=== PATIENT | female | born 1990 | race Caucasian/White ===

== ENCOUNTER → 2016-12-25 | Outpatient (CLI) | payer OTHER ==
--- NOTE | 2016-12-25 14:34 | US ---
EXAMINATION TYPE: US pelvis complete transvag DATE OF EXAM: 12/25/2016 COMPARISON: NONE CLINICAL HISTORY: N92.0 Menorrhagia w/regular cycle. Irregular menses with heavy bleeding. Cramping, painful intercourse IUD placement 3 years ago TECHNIQUE: Transvaginal (TV) and Transabdominal (TA) Date of LMP: 12/14/16 EXAM MEASUREMENTS: Uterus: 8.2 x 4.0 x 5.0 cm Endometrial Stripe: 0.6 cm Right Ovary: 2.4 x 1.4 x 1.5 cm Left Ovary: 2.9 x 1.4 x 1.4 cm 1. Uterus: Anteverted Nabothian cyst 2. Endometrium: IUD visualized fundus/body 3. Right Ovary: follicles noted 4. Left Ovary: follicles noted 5. Bilateral Adnexa: wnl 6. Posterior cul-de-sac: wnl Transabdominal and transvaginal pelvic ultrasound shows IUD satisfactory in position in the central e ndometrium. IMPRESSION: Unremarkable study.
== END | disposition home or self-care (01) ==
LOC: RADUSWWP 12:42
PROVIDERS: ATTEND Family Medicine
DX: N92.0 Excessive and frequent menstruation with regular cycle (principal)
CPT/HCPCS: 76830; 76856

== ENCOUNTER → 2017-12-01 | Outpatient (CLI) | payer OTHER ==
[2017-12-01 11:36] LABS: HGB 13.7 gm/dL (11.4-16.0); MCH 31.9 pg (25.0-35.0); MCHC 34.3 g/dL (31.0-37.0); MCV 92.9 fL (80.0-100.0); Mean Platelet Volume 6.5; Platelet Count 282 k/uL (150-450); RBC 4.31 m/uL (3.80-5.40); RDW 12.7 % (11.5-15.5); WBC 9.3 k/uL (3.8-10.6)
[2017-12-01 11:45] LABS: Glucose 80 mg/dL (74-99)
--- NOTE | 2017-12-01 13:25 | US ---
EXAMINATION TYPE: Transabdominal DATE OF EXAM: 07/14/17 COMPARISON: NONE CLINICAL HISTORY: Z36 Confirm Dates. Dates, EXAM PERFORMED: Transabdominal (TA) EXAM MEASUREMENTS: GESTATIONAL AGE / DATING Dates by LMP: (10 weeks/2 days) EDC: 06/27/2018 Dates by Current Scan for: (9 weeks/6 days) EDC: 06/30/2018 MATERNAL ANATOMY Uterus: 12.7 x 6.8 x 5.4 cm Right Ovary: 3.9 x 1.9 x 1.7 cm Left Ovary: 3.4 x 1.5 x 0.8 cm Post CDS / Adnexa: No free fluid Presence of free fluid: no Presence of corpus luteal cyst: right hypoechoic ovarian lesion - 1.5 x 1.4 x 0.9 cm Presence of subchorionic bleed: right hypoechoic area seen adjacent to GS = 1.2 x 1.1 x 1.3 cm GESTATION / SURVEY CRL: 3.0 cm (9 weeks/6 days) MSD: Seen, not measured Yolk Sac (normal less than 6mm): 2.9 mm Heart Rate: 167 bpm Rhythm: Normal IUP: Viable IUP Date of LMP: 09/20/2017, Beta HcG (if available): Not available at this time Single live IUP measuring 9 weeks 6 days IMPRESSION: Single viable intrauterine corresponding to ultrasound age 9 weeks 6 days with estimated da te of delivery 06/30/2017 by today's exam. Small subchorionic hemorrhage suspected.
[2017-12-01 17:30] LABS: HIV 1 AB Non-Reactive (Non-Reactive); HIV AB P24 Non-Reactive (Non-Reactive); HIV P24 AG Non-Reactive (Non-Reactive)
== END | disposition home or self-care (01) ==
LOC: RADUSWWP 10:27
PROVIDERS: ATTEND Obstetrics & Gynecology
DX: Z36.9 Encounter for antenatal screening, unspecified (principal); Z3A.09 9 weeks gestation of pregnancy
CPT/HCPCS: 76801; 82565; 82947; 85027; 86762; 86780; 86850; 86900; 86901; 87340; 87390

== ENCOUNTER 2018-06-24 06:03 | Inpatient (IN) | payer OTHER ==
[2018-06-24] MEDS ORDERED: METHYLERGONOVINE 0.2 MG/ML 1 ML AMP IM PRN (06:20)
[2018-06-24] MEDS ORDERED: LIDOCAINE 0.5% (PF) 5 MG/ML (50 ML SDV) SQ PRN (06:20)
[2018-06-24] MEDS ORDERED: TERBUTALINE 1 MG/ML VIAL SQ PRN (06:20)
[2018-06-24] MEDS ORDERED: CARBOPROST TROMETHAMINE 250 MCG/ML 1 ML AMP IM PRN (06:20)
[2018-06-24] MEDS ORDERED: OXYTOCIN 10 UNIT/ML 1 ML VIAL IM PRN (06:20)
[2018-06-24] MEDS ORDERED: OXYTOCIN 30 UNITS/500 ML NS 30 UNIT in SALINE 1 500ML.BAG IV SCH (06:30)
[2018-06-24 06:37] LABS: Basophils % (A) 0 %; Eosinophils # (A) 0.1 k/uL (0-0.7); Eosinophils % (A) 1 %; HCT 33.5 % (34.0-46.0); HGB 11.3 gm/dL (11.4-16.0); Lymphocytes # (A) 2.1 k/uL (1.0-4.8); Lymphocytes % (A) 25 %; MCH 30.5 pg (25.0-35.0); MCHC 33.9 g/dL (31.0-37.0); MCV 89.9 fL (80.0-100.0); Mean Platelet Volume 6.5; Monocytes # (A) 0.6 k/uL (0-1.0); Monocytes % (A) 7 %; Neutrophils # (A) 5.6 k/uL (1.3-7.7); Neutrophils % (A) 65 %; Platelet Count 288 k/uL (150-450); RBC 3.72 m/uL (3.80-5.40); RDW 13.4 % (11.5-15.5); WBC 8.6 k/uL (3.8-10.6)
[2018-06-24] MEDS: LACTATED RINGERS 1,000 ML IV SCH ×2 (06:41→10:09)
[2018-06-24 07:42] VITALS: RESP 16; BMI 65.0
[2018-06-24] MEDS ORDERED: SODIUM CHLORIDE 0.9% 100 ML BAG ONE (09:54)
[2018-06-24] MEDS ORDERED: ROPIVACAINE 5MG/ML 20ML VIAL ONE (09:54)
[2018-06-24] MEDS ORDERED: fentaNYL (PF) 50 MCG/ML 5 ML AMP ONE (09:54)
[2018-06-24] MEDS: OXYTOCIN 20 UNITS/1000 ML NS 1,000 ML IV SCH ×2 (13:32→14:37)
[2018-06-24] MEDS ORDERED: diphenhydrAMINE 25 MG CAP PO PRN (13:34)
[2018-06-24] MEDS ORDERED: HYDROcodone/APAP 7.5-325MG 1 EACH TAB PO PRN (13:34)
[2018-06-24] MEDS ORDERED: WITCH HAZEL 1 EACH MED..PAD TOPICAL PRN (13:34)
[2018-06-24] MEDS ORDERED: BENZOCAINE/MENTHOL SPRAY 1 GM/SPRAY AEROSOL TOPICAL PRN (13:34)
[2018-06-24] MEDS ORDERED: SIMETHICONE 80 MG CHEWABLE PO PRN (13:34)
[2018-06-24] MEDS ORDERED: diphenhydrAMINE 50 MG CAP PO PRN (13:34)
[2018-06-24] MEDS ORDERED: LANOLIN CREAM 5 GM TUBE TOPICAL PRN (13:34)
[2018-06-24] MEDS ORDERED: HYDROCORTISONE 2.5% RECTAL CREAM 30 GM TUBE RECTAL PRN (13:34)
[2018-06-24] MEDS ORDERED: diphenhydrAMINE 50 MG/ML 1 ML VIAL IVP PRN ×2 (13:34)
[2018-06-24] MEDS ORDERED: ACETAMINOPHEN TAB 325 MG TAB PO PRN (13:34)
[2018-06-24] MEDS ORDERED: ZOLPIDEM 5 MG TAB PO PRN (13:34)
[2018-06-24] MEDS: IBUPROFEN 600 MG TAB PO PRN ×2 (17:40→23:38)
[2018-06-25] MEDS: SENNOSIDES-DOCUSATE SODIUM 1 EACH TAB PO SCH ×2 (00:23→08:36)
--- NOTE | 2018-06-25 08:32 | P.HPOB ---
History of Present Illness H&P Date: 06/24/18 Chief Complaint: Induction of Labor 27 year old presents for induction of labor. Her cervix is 3/70/-2. She is not mikayla. heart tones 130-135 with moderate variability and reactive. Review of Systems All systems: negative Constitutional: Denies chills, Denies fever Eyes: denies blurred vision, denies pain Ears, nose, mouth and throat: Denies headache, Denies sore throat Cardiovascular: Denies chest pain, Denies shortness of breath Respiratory: Denies cough Gastrointestinal: Denies abdominal pain, Denies diarrhea, Denies nausea, Denies vomiting Genitourinary: Denies dysuria, Denies hematuria Musculoskeletal: Denies myalgias Integumentary: Denies pruritus, Denies rash Neurological: Denies numbness, Denies weakness Psychiatric: Denies anxiety, Denies depression Endocrine: Denies fatigue, Denies weight change Past Medical History Past Medical History: No Reported History History of Any Multi-Drug Resistant Organisms: None Reported Additional Past Surgical History / Comment(s): arm surgery for cellulitis Past Anesthesia/Blood Transfusion Reactions: No Reported Reaction Past Psychological History: No Psychological Hx Reported Smoking Status: Current every day smoker Past Alcohol Use History: None Reported Past Drug Use History: None Reported - Past Family History Father History Unknown: Yes Medications and Allergies Home Medications Medication Instructions Recorded Confirmed Type Ibuprofen [Motrin] 600 mg PO Q6HR PRN #30 tab 06/25/18 Rx Allergies Allergy/AdvReac Type Severity Reaction Status Date / Time No Known Allergies Allergy Verified 06/24/18 06:18 Exam Osteopathic Statement: *. No significant issues noted on an osteopathic structural exam other than those noted in the History and Physical/Consult. Vital Signs Temp Pulse Resp BP Pulse Ox 06/25/18 00:00 98.1 F 59 L 16 98/53 06/24/18 20:00 99 F 99 16 102/59 97 06/24/18 16:00 98.9 F 81 16 97/56 06/24/18 15:33 82 16 113/64 06/24/18 15:03 88 16 103/64 06/24/18 14:33 71 16 98/63 06/24/18 14:18 82 16 116/68 06/24/18 14:03 91 16 114/66 06/24/18 13:48 90 16 116/68 06/24/18 13:33 87 16 104/72 Intake and Output 06/24/18 06/25/18 06/25/18 22:59 06:59 14:59 Intake Total 1000 Balance 1000 Intake: IV 1000 Oxytocin 20 Units/1000 ml 1000 Ns 1,000 ml @ Per Protocol IV .Q0M NARDA Rx#: [id number] Other: # Voids 1 2 HEart: RRR Lungs: CTAB Abdomen: soft, nontender Extremeties: neg juan diego's Results Result Diagrams: 06/24/18 06:20 Assessment and Plan (1) Normal labor Current Visit: Yes Status: Acute Code(s): O80 - ENCOUNTER FOR FULL-TERM UNCOMPLICATED DELIVERY; Z37.9 - OUTCOME OF DELIVERY, UNSPECIFIED SNOMED Code(s): 89100725 Plan: 1. induction of labor with amniotomy and pitocin 2. anticipate normal vaginal delivery
[2018-06-25] MEDS: IBUPROFEN 600 MG TAB PO PRN (08:36)
--- NOTE | 2018-06-25 08:36 | P.PROBDLV ---
Vaginal Delivery Note - . Vaginal Delivery Note: 27 year old presents at 39 weeks 4 days for induction of labor. Her cervix is 3/70/-2 and she was not mikayla. heart tones 130-135 with moderate variability and reactive. Pitocin was started and amniotomy performed at 750AM, clear fluid noted. She did get an epidural and was completely dilated by 1320. She pushed and delivered a viable female over intact perineum under epidural anesthesia. Head delivered OA, Anterior shoulder delivered with gentle downward guidance, followed by posterior shoulder and rest of body. Nose and mouth bulb suctioned, cord clamped and cut, placed on mother's abdomen. Apgars 9,9, weight 7#9oz. Placenta delivered spontaneously, intact, with 3 vessel cord at 1332. Vagina, cervix and perineum inspected. No lacerations noted. EBL 200ml.
--- NOTE | 2018-06-25 08:37 | P.DS ---
Providers Date of admission: 06/24/18 06:03 Expected date of discharge: 06/25/18 Attending physician: Kailey Wong Primary care physician: Stated None - Discharge Diagnosis(es) (1) Normal labor Current Visit: Yes Status: Resolved (2) Normal vaginal delivery Current Visit: Yes Status: Acute Hospital Course: Pt presented for induction of labor. She underwent a normal vaginal delivery without complication. She will be discharged home PPD #1 in stable condition to follow up with me in 6 weeks. Plan - Discharge Summary New Discharge Prescriptions: New Ibuprofen [Motrin] 600 mg PO Q6HR PRN #30 tab PRN Reason: Mild Pain Or Fever >= 100.5 Discharge Medication List Ibuprofen [Motrin] 600 mg PO Q6HR PRN #30 tab 06/25/18 [Rx] Follow up Appointment(s)/Referral(s): Kailey Wong DO [Doctor of Osteopathic Medicine] - 6 Weeks Discharge Disposition: HOME SELF-CARE
[2018-06-25 09:20] VITALS: BP 106/71; PULSE 74; TEMP 97.9
== END 2018-06-25 14:20 | disposition home or self-care (01) | DRG 807 ==
LOC: 4FBP 06:03
PROVIDERS: ADMIT Obstetrics & Gynecology; ATTEND Obstetrics & Gynecology
PROC: 10E0XZZ Delivery of Products of Conception, External Approach (ICD-10-PCS; principal; 2018-06-24)
PROC: 10907ZC Drainage of Amniotic Fluid, Therapeutic from Products of Conception, Via Natural or Artificial Opening (ICD-10-PCS; 2018-06-24)
PROC: 3E033VJ Introduction of Other Hormone into Peripheral Vein, Percutaneous Approach (ICD-10-PCS; 2018-06-24)
PROC: 3E0S3BZ Introduction of Anesthetic Agent into Epidural Space, Percutaneous Approach (ICD-10-PCS; 2018-06-24)
DX: O99.334 Smoking (tobacco) complicating childbirth (principal); Z37.0 Single live birth; O99.62 Diseases of the digestive system complicating childbirth; K21.9 Gastro-esophageal reflux disease without esophagitis; F17.200 Nicotine dependence, unspecified, uncomplicated; Z3A.39 39 weeks gestation of pregnancy
CPT/HCPCS: 85025; 86850; 86900; 86901

== ENCOUNTER → 2019-04-19 | Outpatient (CLI) | payer OTHER ==
--- NOTE | 2019-04-19 13:32 | US ---
EXAMINATION TYPE: Transabdominal DATE OF EXAM: 04/19/2019 12:40 PM COMPARISON: NONE CLINICAL HISTORY: Z36 Confirm dates. Confirm Dates, pt has no other complaints at this time EXAM PERFORMED: Transabdominal (TA) EXAM MEASUREMENTS: GESTATIONAL AGE / DATING Physician Established: (10 weeks/6 days) EDC: 11/09/2019 Dates by LMP: Unknown Dates by First Scan: No prior Dates by Current Scan for: (9 weeks/5 days) EDC: 11/17/2019 MATERNAL ANATOMY Uterus: 13.3 x 5.7 x 8.2 cm Right Ovary: 2.1 x 1.5 x 2.2 cm Left Ovary: 4.0 x 2.0 x 2.0 cm Post CDS / Adnexa: wnl Presence of free fluid: No Presence of corpus luteal cyst: Left Ovary= 2.1 x 2.0 x 1.9 cm GESTATION / SURVEY CRL: 2.9 cm (9 weeks/5 days) MSD: wnl Yolk Sac (normal less than 6mm): 4mm Heart Rate: 171 bpm Rhythm: Normal IUP: Live IUP Single, live IUP/ No abnormality visualized at this time IMPRESSION: Single live intrauterine with a calculated sonographic age of 9 weeks and 5 day s and estimated date of delivery of 11/17/2019, overall concordant with menstrual age.
== END | disposition home or self-care (01) ==
LOC: RADUSWWP 12:19
PROVIDERS: ATTEND Obstetrics & Gynecology
DX: Z36.89 Encounter for other specified antenatal screening (principal); Z3A.09 9 weeks gestation of pregnancy
CPT/HCPCS: 76801

== ENCOUNTER 2019-11-07 17:18 | Outpatient (CLI) | payer OTHER ==
[2019-11-07 18:06] VITALS: BP 113/60; PULSE 74; RESP 16; TEMP 97.2
--- NOTE | 2019-11-08 17:27 | P.MSEPDOC ---
Presenting Problems - Arrival Data Date of Arrival on Unit: 11/07/19 Time of Arrival on Unit: 17:30 Mode of Transport: Ambulatory - Complaint OB-Reason for Admission/Chief Complaint: Rule Out SROM Comment: leaking clear fluid at 1600 Medical History - Information : 3 Para: 2 Term: 2 : 0 Abortions: Spontaneous or Elective: 0 Number of Living Children: 2 - Gestational Age Gestational Age by ALESSANDRO (wks/days): 38 Weeks and 4 Days - History Comment: no problems with preg. currently on vag yeast medications Review of Systems - Review of Systems Constitutional: No problems Breast: No problems ENT: No problems Cardiovascular: No problems Respiratory: No problems Gastrointestinal: No problems Genitourinary: No problems Musculoskeletal: No problems Neurological: No problems Skin: No problems Vital Signs - Temperature Temperature: 97.2 F Temperature Source: Temporal Artery Scan - Pulse Right Radial Pulse Rate: 74 Pulse Assessment Method: Automatic Cuff - Respirations Respiratory Rate: 16 Oxygen Delivery Method: Room Air O2 Sat by Pulse Oximetry: 100 - Blood Pressure Right Arm Blood Pressure: 113/60 Blood Pressure Mean: 77 Blood Pressure Source: Automatic Cuff Medical Screen Scoring (Pre) - Cervical Exam Dilation: 1-3 cm = 1 Effacement: More than 50% = 2 Membranes: Intact - Uterine Contractions Frequency: N/A Duration: N/A Intensity: N/A - Maternal Vital Signs Maternal Temperature: N/A Maternal Blood Pressure: N/A Signs of Preeclampsia: N/A Maternal Respirations: N/A - Maternal Trauma Maternal Trauma: N/A - Assessment - Baby A Baseline FHR: 130 Heart Rate - NICHD Category: Category I (Normal) = 0 NST: Reactive Position: N/A Station: N/A - Total Score - Baby A Total Score - Baby A: 3 - Total Score - Baby B Total Score - Baby B: 3 - Total Score - Baby C Total Score - Baby C: 3 - Level of Risk - Baby A Level of Risk - Baby A: Low (0-5) - Level of Risk - Baby B Level of Risk - Baby B: Low (0-5) - Level of Risk - Baby C Level of Risk - Baby C: Low (0-5) Physician Notification (Pre) - Physician Notified Physician Notified Date: 11/07/19 Physician Notified Time: 18:15 New Order Received: Yes - Notification Comment Comment: to see in office on . scheduled induction of labor thursdaynov 13. neg amnisure today. Disposition - Disposition OB Disposition: Discharge to home, Written follow up instructions reviewed Discharge Date: 11/07/19 Discharge Time: 18:25 I agree with the RN Medical Screening Exam: Yes Risk & Benefit of care provided described in d/c instruction: Yes Diagnosis: RELATED CONDITIONS, UNSPECIFIED, THIRD TRIMESTER
== END 2019-11-07 18:25 | disposition home or self-care (01) ==
LOC: FBPOP 17:18
PROVIDERS: ATTEND Obstetrics & Gynecology
DX: O26.93 Pregnancy related conditions, unspecified, third trimester (principal); Z3A.38 38 weeks gestation of pregnancy
CPT/HCPCS: 59025; 84112; G0463; 99213

== ENCOUNTER 2019-11-14 06:00 | Inpatient (IN) | payer OTHER ==
[2019-11-14] MEDS ORDERED: TERBUTALINE 1 MG/ML VIAL SQ PRN (06:22)
[2019-11-14] MEDS ORDERED: LIDOCAINE 0.5% (PF) 5 MG/ML (50 ML SDV) SQ PRN (06:22)
[2019-11-14] MEDS ORDERED: METHYLERGONOVINE 0.2 MG/ML 1 ML AMP IM PRN (06:22)
[2019-11-14] MEDS ORDERED: OXYTOCIN 10 UNIT/ML 1 ML VIAL IM PRN (06:22)
[2019-11-14] MEDS ORDERED: CARBOPROST TROMETHAMINE 250 MCG/ML 1 ML AMP IM PRN (06:22)
[2019-11-14] MEDS ORDERED: OXYTOCIN 30 UNITS/500 ML NS 30 UNIT in SALINE 1 500ML.BAG IV SCH (06:30)
[2019-11-14] MEDS: LACTATED RINGERS 1,000 ML IV SCH ×2 (06:36→09:00)
[2019-11-14 07:06] LABS: Basophils % (A) 0 %; Eosinophils # (A) 0.1 k/uL (0-0.7); Eosinophils % (A) 1 %; HCT 34.7 % (34.0-46.0); HGB 11.5 gm/dL (11.4-16.0); Lymphocytes # (A) 2.2 k/uL (1.0-4.8); Lymphocytes % (A) 26 %; MCH 28.7 pg (25.0-35.0); MCHC 33.2 g/dL (31.0-37.0); MCV 86.3 fL (80.0-100.0); Mean Platelet Volume 7.3; Monocytes # (A) 0.5 k/uL (0-1.0); Monocytes % (A) 5 %; Neutrophils # (A) 5.6 k/uL (1.3-7.7); Neutrophils % (A) 65 %; Platelet Count 241 k/uL (150-450); RBC 4.02 m/uL (3.80-5.40); RDW 14.3 % (11.5-15.5); WBC 8.6 k/uL (3.8-10.6)
--- NOTE | 2019-11-14 08:10 | P.HPOB ---
History of Present Illness H&P Date: 11/14/19 Chief Complaint: Induction of labor 29-year-old presents at 40 weeks for induction of labor. Her cervix is 3- 4 centers dilated, 70% effaced, -2 station. She is mikayla irregularly. heart tones 130 with moderate variability and reactive. Review of Systems All systems: negative Constitutional: Denies chills, Denies fever Eyes: denies blurred vision, denies pain Ears, nose, mouth and throat: Denies headache, Denies sore throat Cardiovascular: Denies chest pain, Denies shortness of breath Respiratory: Denies cough Gastrointestinal: Denies abdominal pain, Denies diarrhea, Denies nausea, Denies vomiting Genitourinary: Denies dysuria, Denies hematuria Musculoskeletal: Denies myalgias Integumentary: Denies pruritus, Denies rash Neurological: Denies numbness, Denies weakness Psychiatric: Denies anxiety, Denies depression Endocrine: Denies fatigue, Denies weight change Past Medical History Past Medical History: No Reported History History of Any Multi-Drug Resistant Organisms: None Reported Additional Past Surgical History / Comment(s): arm surgery for cellulitis Past Anesthesia/Blood Transfusion Reactions: No Reported Reaction Past Psychological History: No Psychological Hx Reported Smoking Status: Current every day smoker Past Alcohol Use History: None Reported Past Drug Use History: None Reported - Past Family History Father History Unknown: Yes Medications and Allergies Home Medications Medication Instructions Recorded Confirmed Type Pnv,Calcium 72/Iron/Folic Acid 1 each PO DAILY 11/07/19 11/14/19 History [ Plus Tablet] Allergies Allergy/AdvReac Type Severity Reaction Status Date / Time No Known Allergies Allergy Verified 11/14/19 06:21 Exam Osteopathic Statement: *. No significant issues noted on an osteopathic structural exam other than those noted in the History and Physical/Consult. Vital Signs Temp Pulse Resp BP Pulse Ox 11/14/19 06:19 97.0 F L 103 H 16 114/78 98 Intake and Output 11/13/19 11/14/19 11/14/19 22:59 06:59 14:59 Other: Weight 189 kg Heart: Regular rate and rhythm Lungs: Clear to auscultation bilaterally Abdomen: Soft, nontender Extremities: Negative Homans sign Results Result Diagrams: 11/14/19 06:30 Assessment and Plan (1) Normal labor Current Visit: No Status: Resolved Code(s): O80 - ENCOUNTER FOR FULL-TERM UNCOMPLICATED DELIVERY; Z37.9 - OUTCOME OF DELIVERY, UNSPECIFIED SNOMED Code(s): 99545448 Plan: 1. Induction of labor with amniotomy and Pitocin 2. Anticipate normal vaginal delivery
[2019-11-14] MEDS ORDERED: ROPIVACAINE 5MG/ML 20ML VIAL ONE (08:34)
[2019-11-14] MEDS ORDERED: fentaNYL (PF) 50 MCG/ML 5 ML AMP ONE (08:34)
[2019-11-14] MEDS ORDERED: SODIUM CHLORIDE 0.9% 100 ML BAG ONE (08:34)
[2019-11-14] MEDS ORDERED: diphenhydrAMINE 50 MG/ML 1 ML VIAL IVP PRN ×2 (09:35)
[2019-11-14] MEDS ORDERED: SIMETHICONE 80 MG CHEWABLE PO PRN (09:35)
[2019-11-14] MEDS ORDERED: HYDROCORTISONE 2.5% RECTAL CREAM 30 GM TUBE RECTAL PRN (09:35)
[2019-11-14] MEDS ORDERED: diphenhydrAMINE 50 MG CAP PO PRN (09:35)
[2019-11-14] MEDS ORDERED: LANOLIN CREAM 5 GM TUBE TOPICAL PRN (09:35)
[2019-11-14] MEDS ORDERED: diphenhydrAMINE 25 MG CAP PO PRN (09:35)
[2019-11-14] MEDS ORDERED: BENZOCAINE/MENTHOL SPRAY 1 GM/SPRAY AEROSOL TOPICAL PRN (09:35)
[2019-11-14] MEDS ORDERED: ZOLPIDEM 5 MG TAB PO PRN (09:35)
[2019-11-14] MEDS ORDERED: ACETAMINOPHEN TAB 325 MG TAB PO PRN (09:35)
[2019-11-14] MEDS ORDERED: OXYTOCIN 20 UNITS/1000 ML NS 1,000 ML IV SCH (09:45)
[2019-11-14] MEDS: IBUPROFEN 600 MG TAB PO PRN ×2 (17:19→23:44)
[2019-11-14] MEDS: SENNOSIDES-DOCUSATE SODIUM 1 EACH TAB PO SCH (20:20)
[2019-11-15 06:05] LABS: Basophils % (A) 0 %; Eosinophils # (A) 0.1 k/uL (0-0.7); Eosinophils % (A) 1 %; HCT 32.2 % (34.0-46.0); HGB 10.4 gm/dL (11.4-16.0); Lymphocytes # (A) 2.4 k/uL (1.0-4.8); Lymphocytes % (A) 32 %; MCH 28.3 pg (25.0-35.0); MCHC 32.2 g/dL (31.0-37.0); MCV 87.8 fL (80.0-100.0); Mean Platelet Volume 7.3; Monocytes # (A) 0.4 k/uL (0-1.0); Monocytes % (A) 5 %; Neutrophils # (A) 4.5 k/uL (1.3-7.7); Neutrophils % (A) 59 %; Platelet Count 203 k/uL (150-450); RBC 3.67 m/uL (3.80-5.40); RDW 14.5 % (11.5-15.5); WBC 7.5 k/uL (3.8-10.6)
--- NOTE | 2019-11-15 07:34 | P.PROBDLV ---
Vaginal Delivery Note - . Vaginal Delivery Note: 29-year-old presents at 39 weeks 4 days for induction of labor. Her cervix is 3-4 centers dilated, 70% effaced, -2 station. She is mikayla irregularly. heart tones 130 with moderate variability and reactive. Pitocin was started. Amniotomy performed at 6:54 AM clear fluid noted. When she was uncomfortable and did get an epidural. Her cervix was completely dilated at 9:13 AM. She pushed, delivered a viable male over intact perineum under epidural anesthesia at 9:21 AM. Head delivered OA, nuchal cord 1 easily reduced, anterior shoulder delivered gentle downward guidance followed by posterior shoulder and rest of body. Nose and mouth bulb suctioned, cord clamped and cut, infant placed on mother's abdomen. Apgars 9, 9, weight 7 lbs. 2 oz. Placenta delivered spontaneously, intact with three-vessel cord at 9:23 AM. Vagina, cervix, perineum inspected. No lacerations noted. Quantitative blood loss 245 mL. Mother and baby in stable condition.
--- NOTE | 2019-11-15 07:35 | P.DS ---
Providers Date of admission: 11/14/19 06:05 Expected date of discharge: 11/15/19 Attending physician: Kailey Wong Primary care physician: Stated None - Discharge Diagnosis(es) (1) Normal labor Current Visit: No Status: Resolved (2) Normal vaginal delivery Current Visit: No Status: Acute Hospital Course: Patient presented for induction of labor. She underwent a normal vaginal delivery. course was uncomplicated. She'll be discharged home day #1 in stable condition to follow-up with me in 6 weeks. Plan - Discharge Summary New Discharge Prescriptions: New Ibuprofen [Motrin] 600 mg PO Q6HR PRN #30 tab PRN Reason: Mild Pain Or Fever >= 100.5 No Action Pnv,Calcium 72/Iron/Folic Acid [ Plus Tablet] 1 each PO DAILY Discharge Medication List Pnv,Calcium 72/Iron/Folic Acid [ Plus Tablet] 1 each PO DAILY 11/07/19 [History] Ibuprofen [Motrin] 600 mg PO Q6HR PRN #30 tab 11/15/19 [Rx] Follow up Appointment(s)/Referral(s): Kailey Wong DO [Doctor of Osteopathic Medicine] - 6 Weeks Discharge Disposition: HOME SELF-CARE
[2019-11-15 10:21] VITALS: BP 116/79; PULSE 56; RESP 16; TEMP 98.3
[2019-11-15] MEDS: SENNOSIDES-DOCUSATE SODIUM 1 EACH TAB PO SCH (10:44)
== END 2019-11-15 10:40 | disposition home or self-care (01) | DRG 807 ==
LOC: 4FBP 06:05
PROVIDERS: ADMIT Obstetrics & Gynecology; ATTEND Obstetrics & Gynecology
PROC: 3E0R3BZ Introduction of Anesthetic Agent into Spinal Canal, Percutaneous Approach (ICD-10-PCS; principal; 2019-11-14)
PROC: 3E033VJ Introduction of Other Hormone into Peripheral Vein, Percutaneous Approach (ICD-10-PCS; principal; 2019-11-14)
PROC: 10E0XZZ Delivery of Products of Conception, External Approach (ICD-10-PCS; principal; 2019-11-14)
PROC: 10907ZC Drainage of Amniotic Fluid, Therapeutic from Products of Conception, Via Natural or Artificial Opening (ICD-10-PCS; principal; 2019-11-14)
PROC: 00HU33Z Insertion of Infusion Device into Spinal Canal, Percutaneous Approach (ICD-10-PCS; principal; 2019-11-14)
DX: O69.81X0 Labor and delivery complicated by cord around neck, without compression, not applicable or unspecified (principal); Z37.0 Single live birth; F17.200 Nicotine dependence, unspecified, uncomplicated; O99.334 Smoking (tobacco) complicating childbirth; O99.62 Diseases of the digestive system complicating childbirth; K21.9 Gastro-esophageal reflux disease without esophagitis; Z3A.39 39 weeks gestation of pregnancy; Z79.899 Other long term (current) drug therapy; Z87.2 Personal history of diseases of the skin and subcutaneous tissue; Z98.890 Other specified postprocedural states
CPT/HCPCS: 85025; 86850; 86900; 86901

== ENCOUNTER → 2020-01-26 | Outpatient (CLI) | payer OTHER | END | disposition home or self-care (01) | LOC: LABWHC1 08:24 | PROVIDERS: ATTEND Obstetrics & Gynecology | DX: N92.6 Irregular menstruation, unspecified (principal) | CPT/HCPCS: 36415; 84702 ==

== ENCOUNTER 2021-09-16 16:37 | Emergency (ER) | payer OTHER ==
[2021-09-16 16:48] VITALS: BP 111/74; PULSE 85; RESP 20; TEMP 98
--- NOTE | 2021-09-16 18:24 | XR ---
EXAMINATION TYPE: XR knee complete RT DATE OF EXAM: 09/16/2021 COMPARISON: NONE HISTORY: Pain TECHNIQUE: 3 view FINDINGS: There is no sign of fracture nor dislocation. Joint spaces are normal. No sign of joint eff usion. IMPRESSION: Normal right knee exam.
--- NOTE | 2021-09-16 18:47 | ED ---
Lower Extremity Injury HPI - General Chief Complaint: Extremity Injury, Lower Stated Complaint: Knee injury Time Seen by Provider: 09/16/21 17:39 Source: patient Mode of arrival: ambulatory Limitations: no limitations - History of Present Illness Initial Comments: 31-year-old female presents emergency department status post patellar dislocation. States that she has done this once previously in the past. Today she was in bleeding in her bedroom, hit her knee On the side of her bed and subsequently dislocated her patella. She was able to relocate the bone however states she still has tenderness upon bending her knee and therefore presents to the emergency department to ensure that it was adequately replaced. She has been ambulating on the extremity. Denies knee dislocation. No numbness, tingling or weakness in her foot. No other alleviating, precipitating or modifying factors - Related Data Home Medications Medication Instructions Recorded Confirmed Pnv,Calcium 72/Iron/Folic Acid 1 each PO DAILY 11/07/19 11/14/19 [ Plus Tablet] Previous Rx's Medication Instructions Recorded Ibuprofen [Motrin] 600 mg PO Q6HR PRN #30 tab 11/15/19 Allergies Allergy/AdvReac Type Severity Reaction Status Date / Time No Known Allergies Allergy Verified 09/16/21 16:48 Review of Systems ROS Statement: Those systems with pertinent positive or pertinent negative responses have been documented in the HPI. ROS Other: All systems not noted in ROS Statement are negative. Past Medical History Past Medical History: No Reported History History of Any Multi-Drug Resistant Organisms: None Reported Additional Past Surgical History / Comment(s): arm surgery for cellulitis Past Anesthesia/Blood Transfusion Reactions: No Reported Reaction Past Psychological History: No Psychological Hx Reported Smoking Status: Current every day smoker Past Alcohol Use History: None Reported Past Drug Use History: None Reported - Past Family History Father History Unknown: Yes General Exam Limitations: no limitations Head exam: Present: atraumatic, normocephalic, normal inspection Eye exam: Present: normal appearance, PERRL, EOMI. Absent: scleral icterus, conjunctival injection, periorbital swelling Extremities exam: Present: other (normal location of patella. Mild joint tenderness. no joint swelling. 2+ DP and PT pulses. intact sensation over the medial, lateral and dorsal b/l le) Course Vital Signs 09/16/21 16:45 Temperature 98.0 F Pulse Rate 85 Respiratory 20 Rate Blood Pressure 111/74 O2 Sat by Pulse 97 Oximetry Medical Decision Making - Medical Decision Making Upon removal patient is placed into room 29. History and physical exam was performed. Patient does have intact sensation and distal pulses. X-rays performed which demonstrates appropriate position of the patella. She is wrapped in an Vick bandage. She is instructed to rest, ice and elevate her knee. Ambulate with crutches as needed. Follow up with her primary care doctor in 2-4 days. She given all the information for the orthopedic clinic. Return for any new or worsening symptoms. Patient agreed to treatment and was discharged in stable condition Disposition Clinical Impression: Right knee pain, Patellar dislocation Disposition: HOME SELF-CARE Condition: Stable Instructions (If sedation given, give patient instructions): Patellar Dislocation (ED) Additional Instructions: Use the Vick bandage or knee immobilizer. Rest, ice and elevate the extremity. Ambulate with crutches. Take Motrin and Tylenol for pain control. [facility] if you continue to have symptoms. Is patient prescribed a controlled substance at d/c from ED?: No Referrals: Haresh Arora DO [Primary Care Provider] - 1-2 days Abraham Lorenzana MD [Medical Doctor] - 1-2 days Time of Disposition: 18:47
== END 2021-09-16 19:01 | disposition home or self-care (01) ==
LOC: EC 16:37
DX: S83.004A Unspecified dislocation of right patella, initial encounter (principal); F17.200 Nicotine dependence, unspecified, uncomplicated; W22.03XA Walked into furniture, initial encounter
CPT/HCPCS: 99283

== ENCOUNTER 2023-08-23 16:06 | Emergency (ER) | payer OTHER ==
--- NOTE | 2023-08-23 16:47 | ED ---
General Adult HPI - General Chief complaint: Abdominal Pain Stated complaint: Stomach pain, nausea Time Seen by Provider: 08/23/23 16:21 Source: patient, RN notes reviewed, old records reviewed Mode of arrival: ambulatory Limitations: no limitations - History of Present Illness Initial comments: Patient is a 33-year-old male who presents emergency department complaining of abdominal pain. Complaining of epigastric and right upper quadrant abdominal pain after she eats for the last 2 weeks. Has also had some nausea and nonbilious nonbloody emesis as well as diarrhea. Denies any known history of abdominal surgeries. Denies any chest pain or shortness of breath. No fevers. Denies being . Denies any urinary complaints. Patient does smoke marijuana daily, but denies any other drug or alcohol use. Presents for further evaluation at this time. - Related Data Home Medications Medication Instructions Recorded Confirmed ALPRAZolam [Xanax] 0.25 mg PO DAILY PRN 06/21/22 06/21/22 Sertraline [Zoloft] See Taper PO DIRECTED 06/21/22 06/21/22 Previous Rx's Medication Instructions Recorded Ondansetron Odt [Zofran Odt] 4 mg PO Q8HR PRN #20 tab 06/21/22 Dicyclomine [Bentyl] 10 mg PO TID PRN 7 Days #21 capsule 08/23/23 Allergies Allergy/AdvReac Type Severity Reaction Status Date / Time No Known Allergies Allergy Verified 08/23/23 16:15 Review of Systems ROS Statement: Those systems with pertinent positive or pertinent negative responses have been documented in the HPI. Review of Systems: CONST: Denies fever EYES: Denies blurry vision ENT: Denies nasal congestion C/V: Denies Chest pain RESP: Denies shortness of breath GI: Endorses epigastric and right upper quadrant abdominal pain : Denies dysuria SKIN: Denies rash. MSK: Denies joint pain. NEURO: Denies headache ROS Other: All systems not noted in ROS Statement are negative. Past Medical History Past Medical History: No Reported History History of Any Multi-Drug Resistant Organisms: None Reported Additional Past Surgical History / Comment(s): arm surgery for cellulitis Past Anesthesia/Blood Transfusion Reactions: No Reported Reaction Past Psychological History: Anxiety Smoking Status: Current every day smoker Past Alcohol Use History: None Reported Past Drug Use History: None Reported - Past Family History Father History Unknown: Yes General Exam - General Exam Comments Initial Comments: General: Appears in mild distress. HEAD: Normal with no signs of head trauma. EYES: PERRLA, EOMI, conjunctiva normal, no discharge. ENT: Hearing grossly intact, normal oropharynx. RESPIRATORY: Clear breath sounds bilaterally. No wheezes, rales, or rhonchi. C/V: Regular rate and rhythm. S1 and S2 auscultated, no edema, peripheral pulses 2+ and intact throughout ABD: Soft, nondistended. Tender to palpation in the epigastric region and right upper quadrant. No guarding. No rebound tenderness. No peritoneal signs. Varma sign appears negative. EXT: Normal range of motion, no obvious deformity SKIN: No rashes or lesions observed on exposed skin. NEURO: Alert and oriented x 4. Limitations: no limitations Course Vital Signs 08/23/23 08/23/23 08/23/23 16:13 19:04 20:52 Temperature 99.1 F 98.7 F Pulse Rate 99 59 L 66 Respiratory 16 18 18 Rate Blood Pressure 144/93 102/69 108/72 O2 Sat by Pulse 98 97 99 Oximetry Medical Decision Making - Medical Decision Making Was pt. sent in by a medical professional or institution (, PA, RESIDENCE HALL DIRECTOR, urgent care, hospital, or care home...) When possible be specific @ -No Did you speak to anyone other than the patient for history (EMS, parent, family, police, friend...)? What history was obtained from this source @ -No Did you review nursing and triage notes (agree or disagree)? Why? @ -I reviewed and agree with nursing and triage notes Were old charts reviewed (outside hosp., previous admission, EMS record, old EKG, old radiological studies, urgent care reports/EKG's, care home records)? Report findings @ -No old charts were reviewed Differential Diagnosis (chest pain, altered mental status, abdominal pain women, abdominal pain men, vaginal bleeding, weakness, fever, dyspnea, syncope, headache, dizziness, GI bleed, back pain, seizure, CVA, palpatations, mental health, musculoskeletal)? @ -Differential Abdominal Pain Women: Appendicitis, Cholecystitis, diverticulosis, ischemic bowel, pancreatitis, hepatitis, UTI, gastroenteritis, AAA, incarcerated hernia, bowel obstruction, constipation, inflammatory bowel, hepatitis, peptic ulcer disease, splenic i nfarction, perforated viscus, vulvitis, ovarian torsion, PID, kidney stone, placenta abruption, this is not meant to be an all-inclusive list EKG interpreted by me (3pts min.). @ -None done X-rays interpreted by me (1pt min.). @ -None done CT interpreted by me (1pt min.). @ -CT abdomen pelvis negative for any obvious acute intra-abdominal process. U/S interpreted by me (1pt. min.). @ -Gall bladder ultrasound unremarkable. What testing was considered but not performed or refused? (CT, X-rays, U/S, labs)? Why? @ -None What meds were considered but not given or refused? Why? @ -None Did you discuss the management of the patient with other professionals (professionals i.e. , PA, RESIDENCE HALL DIRECTOR, lab, RT, psych nurse, social media marketing manager, general internist, teacher, gift officer, casey saw operator)? Give summary @ -No Was smoking cessation discussed for >3mins.? @ -No Was critical care preformed (if so, how long)? @ -No Were there social determinants of health that impacted care today? How? (Homelessness, low income, unemployed, alcoholism, drug addiction, transportation, low edu. Level, literacy, decrease access to med. care, detention, rehab)? @ -No Was there de-escalation of care discussed even if they declined (Discuss DNR or withdrawal of care, Hospice)? DNR status @ -No What co-morbidities impacted this encounter? (DM, HTN, Smoking, COPD, CAD, Cancer, CVA, ARF, Chemo, Hep., AIDS, mental health diagnosis, sleep apnea, morbid obesity)? @ -None Was patient admitted / discharged? Hospital course, mention meds given and route, prescriptions, significant lab abnormalities, going to OR and other perti nent info. @ -Patient presents with abdominal pain and nausea vomiting and diarrhea. Seems to be hepatobiliary related. We will obtain abdominal laboratory studies as well as an ultrasound the gallbladder. Patient be symptomatically treated with IV fluids, Toradol, Zofran, Protonix. Patient was in agreement this plan. Patient's laboratory studies returned unremarkable. Ultrasound unremarkable. Patient's reevaluation shows continued pain and she was given morphine. I updated the patient. As there is no current answer for current symptoms I did offer CT imaging which she did accept at this time. CT abdomen pelvis was completed and showed no obvious acute intra-abdominal process. I did the patient at this time. Recommend follow-up with GI specialist for possible EGD. She will be discharged home with analgesia medications as well as a prescription for Bentyl as well as ODT Zofran. Patient was in agreement this plan. Vital signs within acceptable limits. Strict return precautions discussed. I instructed the patient to follow up with their PCP in the next 1-3 days. I provided contact information for follow up with Dr. Wolfe. I explained that the patient should return to the emergency department if they experience any worsening symptoms. Strict return precautions were discussed with the patient. The patient expressed understanding of these instructions. I answered all questions that the patient had. The patient was discharged home in good condition with their prescriptions and follow up information. Undiagnosed new problem with uncertain prognosis? @ -No Drug Therapy requiring intensive monitoring for toxicity (Heparin, Nitro, Insulin, Cardizem)? @ -No Were any procedures done? @ -No Diagnosis/symptom? @ -Abdominal pain of unknown etiology Acute, or Chronic, or Acute on Chronic? @ -Acute Uncomplicated (without systemic symptoms) or Complicated (systemic symptoms)? @ -Uncomplicated Side effects of treatment? @ -None Exacerbation, Progression, or Severe Exacerbation] @ -No Poses a threat to life or bodily function? @ -Unlikely - Lab Data Result diagrams: 08/23/23 17:22 08/23/23 17:22 Lab Results 08/23/23 08/23/23 08/23/23 Range/Units 17:22 17:22 18:05 WBC 9.4 (3.8-10.6) k/uL RBC 4.93 (3.80-5.40) m/uL Hgb 15.8 (11.4-16.0) gm/dL Hct 47.5 H (34.0-46.0) % MCV 96.5 (80.0-100.0) fL MCH 32.0 (25.0-35.0) pg MCHC 33.1 (31.0-37.0) g/dL RDW 13.2 (11.5-15.5) % Plt Count 306 (150-450) k/uL MPV 7.3 Neutrophils % 67 % Lymphocytes % 25 % Monocytes % 5 % Eosinophils % 2 % Basophils % 0 % Neutrophils # 6.2 (1.3-7.7) k/uL Lymphocytes # 2.3 (1.0-4.8) k/uL Monocytes # 0.5 (0-1.0) k/uL Eosinophils # 0.2 (0-0.7) k/uL Basophils # 0.0 (0-0.2) k/uL PT 11.8 (10.0-12.5) sec INR 1.1 (<1.2) APTT 24.6 (22.0-30.0) sec Sodium 140 (137-145) mmol/L Potassium 4.6 (3.5-5.1) mmol/L Chloride 108 H (98-107) mmol/L Carbon Dioxide 21 L (22-30) mmol/L Anion Gap 11 mmol/L BUN 18 H (7-17) mg/dL Creatinine 0.69 (0.52-1.04) mg/dL Est GFR (CKD-EPI)AfAm >90 (>60 ml/min/1.73 sqM) Est GFR (CKD-EPI)NonAf >90 (>60 ml/min/1.73 sqM) Glucose 94 (74-99) mg/dL Calcium 10.2 (8.4-10.2) mg/dL Total Bilirubin 0.7 (0.2-1.3) mg/dL AST 25 (14-36) U/L ALT 12 (4-34) U/L Alkaline Phosphatase 47 (38-126) U/L Total Protein 7.9 (6.3-8.2) g/dL Albumin 4.6 (3.5-5.0) g/dL Amylase 43 (30-110) U/L Lipase 52 (23-300) U/L HCG, Qual Not Detected Disposition Clinical Impression: Abdominal pain of unknown etiology Disposition: HOME SELF-CARE Condition: Good Instructions (If sedation given, give patient instructions): Abdominal Pain (ED) Prescriptions: Dicyclomine [Bentyl] 10 mg PO TID PRN 7 Days #21 capsule PRN Reason: Pain Is patient prescribed a controlled substance at d/c from ED?: No Referrals: Nonstaff,Physician [REFERRING] - 1-2 days Patricia Wolfe MD [STAFF PHYSICIAN] - 1-2 days Time of Disposition: 20:29
[2023-08-23] MEDS: SODIUM CHLORIDE 0.9% 1,000 ML IV STA (17:05)
[2023-08-23] MEDS: ONDANSETRON 4 MG/2 ML VIAL IVP STA (17:06)
[2023-08-23] MEDS: KETOROLAC 15 MG/ML 1 ML VIAL IVP STA (17:06)
[2023-08-23] MEDS: PANTOPRAZOLE 40 MG/10 ML VIAL IVP STA (17:07)
[2023-08-23 17:32] LABS: Basophils % (A) 0 %; Eosinophils # (A) 0.2 k/uL (0-0.7); Eosinophils % (A) 2 %; HCT 47.5 % (34.0-46.0); HGB 15.8 gm/dL (11.4-16.0); Lymphocytes # (A) 2.3 k/uL (1.0-4.8); Lymphocytes % (A) 25 %; MCHC 33.1 g/dL (31.0-37.0); MCV 96.5 fL (80.0-100.0); Mean Platelet Volume 7.3; Monocytes # (A) 0.5 k/uL (0-1.0); Monocytes % (A) 5 %; Neutrophils # (A) 6.2 k/uL (1.3-7.7); Neutrophils % (A) 67 %; Platelet Count 306 k/uL (150-450); RBC 4.93 m/uL (3.80-5.40); RDW 13.2 % (11.5-15.5); WBC 9.4 k/uL (3.8-10.6)
[2023-08-23 17:42] LABS: ALT 12 U/L (4-34); AST 25 U/L (14-36); African American GFR (CKD) >90 (>60 ml/min/1.73 sqM); Albumin 4.6 g/dL (3.5-5.0); Alkaline Phosphatase 47 U/L (38-126); Amylase 43 U/L (30-110); Anion Gap 11 mmol/L; Blood Urea Nitrogen 18 mg/dL (7-17); Calcium 10.2 mg/dL (8.4-10.2); Carbon Dioxide 21 mmol/L (22-30); Chloride 108 mmol/L (98-107); Glucose 94 mg/dL (74-99); Lipase 52 U/L (23-300); Non-African American GFR(CKD) >90 (>60 ml/min/1.73 sqM); Sodium 140 mmol/L (137-145); Total Bilirubin 0.7 mg/dL (0.2-1.3); Total Protein 7.9 g/dL (6.3-8.2)
[2023-08-23 17:45] LABS: Potassium 4.6 mmol/L (3.5-5.1)
[2023-08-23 17:52] LABS: HCG,Qualitative Serum Not Detected
[2023-08-23] MEDS: MORPHINE SULFATE 4 MG/ML SYRINGE IVP STA ×2 (18:29→20:44)
[2023-08-23 18:43] LABS: INR 1.1 (<1.2); Partial Thromboplastin Time 24.6 sec (22.0-30.0); Prothrombin Time 11.8 sec (10.0-12.5)
--- NOTE | 2023-08-23 18:51 | US ---
EXAMINATION TYPE: US gallbladder DATE OF EXAM: 08/23/2023 COMPARISON: NONE CLINICAL INDICATION: Female, 33 years old with history of RUQ abd pain; Pain TECHNIQUE: Multiple sonographic images of the right upper quadrant are obtained. FINDINGS: EXAM MEASUREMENTS: Liver Length: 15.0 cm Gallbladder Wall: 0.1 cm CBD: 0.6 cm Right Kidney: 9.3 x 4.6 x 4.8 cm Pancreas: Echogenic in appearance, head and tail not well seen Liver: No prominent focal masses or lesions identified at time of scan Gallbladder: Folds seen, no wall thickening or stones Evidence for sonographic Varma's sign: neg CBD: upper limits of normal in size Right Kidney: No hydronephrosis or masses seen, limited lower pole due to bowel gas IMPRESSION: No evidence for acute process.
[2023-08-23 19:31] VITALS: RESP 18
--- NOTE | 2023-08-23 19:50 | CT ---
EXAMINATION TYPE: CT abdomen pelvis w con CT DLP: 598.7 mGycm, Automated exposure control for dose reduction was used. DATE OF EXAM: 08/23/2023 7:39 PM COMPARISON: None. CLINICAL INDICATION:Female, 33 years old with history of abd pain, acute, nonlocalized; pt comes in f or abd pain after she eats and diarrhea x 2 weeks. TECHNIQUE: Axial CT abdomen pelvis w con;Sagittal and coronal reformats were created on a separate w orkstation. Contrast used:100 mL of Isovue 300 with IV Contrast, (none if empty) Oral contrast used: without Oral Contrast (none if empty) FINDINGS: LOWER CHEST: Unremarkable ABDOMEN LIVER: Unremarkable GALLBLADDER AND BILE DUCTS: Unremarkable. PANCREAS: Unremarkable. SPLEEN: Unremarkable. ADRENAL GLANDS: Unremarkable. KIDNEYS AND URETERS: No evidence of hydronephrosis or renal calculus. The ureters are unremarkable. PELVIS BLADDER: Unremarkable REPRODUCTIVE: Arcuate morphology to the uterine fundus. ABDOMEN & PELVIS STOMACH AND BOWEL: No evidence of bowel obstruction. Redundant sigmoid colon noted. PERITONEUM/RETROPERITONEUM: No evidence of pneumoperitoneum or free fluid. VASCULATURE: No evidence of aortic aneurysm. MUSCULOSKELETAL: No acute osseous abnormalities LYMPH NODES: No gross evidence for lymphadenopathy. SOFT TISSUE/ABDOMINAL WALL: Unremarkable IMPRESSION: No evidence for acute process. Nothing to correlate with patient's symptoms.
[2023-08-23] MEDS: METOCLOPRAMIDE 5 MG/ML 2 ML VIAL IVP STA (20:29)
[2023-08-23] MEDS: ACET/COD 300 MG/30 MG STARTER PACK 6 TAB BTL PO STA (20:41)
[2023-08-23] MEDS: ONDANSETRON 4 MG ODT STARTER PACK 2 TAB BTL PO STA (20:41)
[2023-08-23 21:36] VITALS: BP 108/72; PULSE 66; TEMP 98.7
== END 2023-08-23 20:55 | disposition home or self-care (01) ==
LOC: EC 16:06
DX: R10.11 Right upper quadrant pain (principal); F17.200 Nicotine dependence, unspecified, uncomplicated
CPT/HCPCS: 80053; 82150; 83690; 85025; 85610; 85730; 84703; 76705; 74177; 99284; 96374; 96375 ×4; 96361 ×2; J2270; J2765; J2405; J1885; S0119; C9113; Q9967; 36415

== ENCOUNTER 2024-02-22 17:16 | Emergency (ER) | payer OTHER ==
--- NOTE | 2024-02-22 17:45 | ED ---
Nausea/Vomiting/Diarrhea HPI - General Source: RN notes reviewed Mode of arrival: ambulatory Limitations: no limitations - History of Present Illness MD complaint: nausea, vomiting, diarrhea, abdominal pain Onset/Timin -: days(s) Description of Vomiting: food contents, watery Description of Diarrhea: water Associated Abdominal Pain: Yes Location: epigastric Severity scale (1-10): 10 Consistency: intermittent <Vero Washburnling - Last Filed: 02/22/24 17:43> - General Source: patient, RN notes reviewed Mode of arrival: ambulatory Limitations: no limitations <Haresh Phipps - Last Filed: 02/22/24 20:17> - General Stated complaint: Diarrhea,Abd pain Time Seen by Provider: 02/22/24 17:32 - History of Present Illness Initial comments: This is a 33-year-old female presenting with nausea/vomiting/diarrhea x 6 days. Patient endorses associated intermittent upper abdominal pain (10 out of 10). Endorses food content and water in emesis and stool. Patient endorses receiving an endoscopy and colonoscopy 2 weeks ago with her subsequent symptoms starting 1 week after that. Patient denies hematemesis, hematochezia, melena. (Edward Washburn) 33-year-old female presents emergency department chief complaint of abdominal discomfort. She has been having ongoing issues she states that she primary has nausea reflux and diarrhea. Patient states that she did have a recent EGD showing gastritis. She states she was on Protonix by her primary care physician added Pepcid and wrote her omeprazole but she did not start that. Patient denies any hematemesis or Emesis No Melanotic Stools. She States That She Has Been Trying to Change Her Diet but Is Not Helping but She Is Not Sure What to Change It. No Fever No Chest Pain (Haresh Phipps) - Related Data Home Medications Medication Instructions Recorded Confirmed ALPRAZolam [Xanax] 0.25 mg PO DAILY PRN 06/21/22 06/21/22 Sertraline [Zoloft] See Taper PO DIRECTED 06/21/22 06/21/22 Previous Rx's Medication Instructions Recorded Ondansetron Odt [Zofran Odt] 4 mg PO Q8HR PRN #20 tab 06/21/22 Dicyclomine [Bentyl] 10 mg PO TID PRN 7 Days #21 capsule 08/23/23 Metoclopramide [Reglan] 10 mg PO TID PRN #20 tab 02/22/24 Allergies Allergy/AdvReac Type Severity Reaction Status Date / Time No Known Allergies Allergy Verified 08/23/23 16:15 Review of Systems ROS Other: All systems not noted in ROS Statement are negative. <Edward Washburn - Last Filed: 02/22/24 17:43> ROS Other: All systems not noted in ROS Statement are negative. <Haresh Phipps - Last Filed: 02/22/24 20:17> ROS Statement: Those systems with pertinent positive or pertinent negative responses have been documented in the HPI. Past Medical History Past Medical History: No Reported History History of Any Multi-Drug Resistant Organisms: None Reported Additional Past Surgical History / Comment(s): arm surgery for cellulitis Past Anesthesia/Blood Transfusion Reactions: No Reported Reaction Past Psychological History: Anxiety Smoking Status: Current every day smoker Past Alcohol Use History: None Reported Past Drug Use History: None Reported - Past Family History Father History Unknown: Yes <Edward Washburn - Last Filed: 02/22/24 17:43> General Exam <Edward Washburn - Filed: 02/22/24 17:43> Limitations: no limitations General appearance: alert, in no apparent distress Head exam: Present: atraumatic, normocephalic, normal inspection Eye exam: Present: normal appearance, PERRL, EOMI. Absent: scleral icterus, conjunctival injection, periorbital swelling ENT exam: Present: normal exam, normal oropharynx, mucous membranes moist Neck exam: Present: normal inspection, full ROM. Absent: tenderness, meningismus, lymphadenopathy Respiratory exam: Present: normal lung sounds bilaterally. Absent: respiratory distress, wheezes, rales, rhonchi, stridor Cardiovascular Exam: Present: regular rate, normal rhythm, normal heart sounds. Absent: systolic murmur, diastolic murmur, rubs, gallop, clicks GI/Abdominal exam: Present: soft, normal bowel sounds. Absent: distended, tenderness, guarding, rebound, rigid Neurological exam: Present: alert, oriented X3 Skin exam: Present: warm, dry, intact, normal color. Absent: rash <Haresh Phipps - Last Filed: 02/22/24 20:17> - General Exam Comments Initial Comments: Visual Physical Exam Vital signs reviewed General: Well-appearing, nontoxic, no acute distress. Head: Normocephalic, atraumatic Eyes: PERRLA, EOMI ENT: Airway patent Chest: Nonlabored breathing Skin: No visual rash, normal skin tone Neuro: Alert and oriented 3 Musculoskeletal: No gross abnormalities (Edwadr Washburn) Course Vital Signs 02/22/24 17:44 Temperature 98.1 F Pulse Rate 101 H Respiratory 20 Rate Blood Pressure 116/77 O2 Sat by Pulse 99 Oximetry Medical Decision Making <Edward Washburn - Last Filed: 02/22/24 17:43> - Lab Data Result diagrams: 02/22/24 17:40 02/22/24 17:40 <Haresh Phipps - Last Filed: 02/22/24 20:17> - Medical Decision Making I completed the quick note portion of this chart signed OSCAR Moore (Edward Washburn) Was pt. sent in by a medical professional or institution ([facility], HVAC INSTALLATION TECHNICIAN, urgent care, hospital, or penitentiary...) When possible be specific @ -No Did you speak to anyone other than the patient for history (EMS, parent, family, police, friend...)? What history was obtained from this source @ -No Did you review nursing and triage notes (agree or disagree)? Why? @ -I reviewed and agree with nursing and triage notes Were old charts reviewed (outside hosp., previous admission, EMS record, old EKG, old radiological studies, urgent care reports/EKG's, penitentiary records)? Report findings @ -No old charts were reviewed Differential Diagnosis (chest pain, altered mental status, abdominal pain women, abdominal pain men, vaginal bleeding, weakness, fever, dyspnea, syncope, headache, dizziness, GI bleed, back pain, seizure, CVA, palpatations, mental health, musculoskeletal)? @ -Differential Abdominal Pain Women: Appendicitis, Cholecystitis, diverticulosis, ischemic bowel, pancreatitis, hepatitis, UTI, gastroenteritis, AAA, incarcerated hernia, bowel obstruction, constipation, inflammatory bowel, hepatitis, peptic ulcer disease, splenic infarction, perforated viscus, vulvitis, ovarian torsion, PID, kidney stone, placenta abruption, this is not meant to be an all-inclusive list EKG interpreted by me (3pts min.). @ -None X-rays interpreted by me (1pt min.). @ -None done CT interpreted by me (1pt min.). @ -None done U/S interpreted by me (1pt. min.). @ -None done What testing was considered but not performed or refused? (CT, X-rays, U/S, labs)? Why? @ -None What meds were considered but not given or refused? Why? @ -None Did you discuss the management of the patient with other professionals (professionals i.e. , PA, HVAC INSTALLATION TECHNICIAN, lab, RT, psych nurse, psychotherapist social worker, supervisor paste mixing, teacher, ammunition officer, case investigator)? Give summary @ -No Was smoking cessation discussed for >3mins.? @ -No Was critical care preformed (if so, how long)? @ -No Were there social determinants of health that impacted care today? How? (Homelessness, low income, unemployed, alcoholism, drug addiction, transportation, low edu. Level, literacy, decrease access to med. care, care home, rehab)? @ -No Was there de-escalation of care discussed even if they declined (Discuss DNR or withdrawal of care, Hospice)? DNR status @ -No What co-morbidities impacted this encounter? (DM, HTN, Smoking, COPD, CAD, Cancer, CVA, ARF, Chemo, Hep., AIDS, mental health diagnosis, sleep apnea, morbid obesity)? @ -None Was patient admitted / discharged? Hospital course, mention meds given and route, prescriptions, significant lab abnormalities, going to OR and other pertinent info. @ -Discharged patient feels great improved after Zofran laboratory studies unremarkable. Patient be discharged in stable condition with close follow-up return amna discussed. Undiagnosed new problem with uncertain prognosis? @ -No Drug Therapy requiring intensive monitoring for toxicity (Heparin, Nitro, Insulin, Cardizem)? @ -No Were any procedures done? @ -No Diagnosis/symptom? @ -Abdominal pain, GERD, gastritis Acute, or Chronic, or Acute on Chronic? @ -Acute Uncomplicated (without systemic symptoms) or Complicated (systemic symptoms)? @ -Uncomplicated Side effects of treatment? @ -No Exacerbation, Progression, or Severe Exacerbation? @ -No Poses a threat to life or bodily function? How? (Chest pain, USA, NV, pneumonia, PE, COPD, DKA, ARF, appy, cholecystitis, CVA, Diverticulitis, Homicidal, Suicidal, threat to staff... and all critical care pts) @ -No (Haresh Phipps) - Lab Data Lab Results 02/22/24 02/22/24 02/22/24 Range/Units 17:40 17:40 17:42 WBC 9.9 (3.8-10.6) k/uL RBC 4.82 (3.80-5.40) m/uL Hgb 15.9 (11.4-16.0) gm/dL Hct 45.8 (34.0-46.0) % MCV 95.0 (80.0-100.0) fL MCH 33.0 (25.0-35.0) pg MCHC 34.8 (31.0-37.0) g/dL RDW 12.1 (11.5-15.5) % Plt Count 344 (150-450) k/uL MPV 6.6 Neutrophils % 65 % Lymphocytes % 26 % Monocytes % 5 % Eosinophils % 2 % Basophils % 0 % Neutrophils # 6.4 (1.3-7.7) k/uL Lymphocytes # 2.6 (1.0-4.8) k/uL Monocytes # 0.5 (0-1.0) k/uL Eosinophils # 0.2 (0-0.7) k/uL Basophils # 0.0 (0-0.2) k/uL Sodium 136 L (137-145) mmol/L Potassium 4.1 (3.5-5.1) mmol/L Chloride 102 (98-107) mmol/L Carbon Dioxide 25 (22-30) mmol/L Anion Gap 9 mmol/L BUN 21 H (7-17) mg/dL Creatinine 0.64 (0.52-1.04) mg/dL Est GFR (CKD-EPI)AfAm >90 (>60 ml/min/1.73 sqM) Est GFR (CKD-EPI)NonAf >90 (>60 ml/min/1.73 sqM) Glucose 92 (74-99) mg/dL Plasma Lactic Acid Guille 1.3 (0.7-2.0) mmol/L Calcium 9.7 (8.4-10.2) mg/dL Total Bilirubin 0.4 (0.2-1.3) mg/dL AST 15 (14-36) U/L ALT 10 (4-34) U/L Alkaline Phosphatase 50 (38-126) U/L Total Protein 7.0 (6.3-8.2) g/dL Albumin 4.4 (3.5-5.0) g/dL Amylase 34 (30-110) U/L Lipase 26 (23-300) U/L Urine Color Urine Appearance (Clear) Urine pH (5.0-8.0) Ur Specific [place] (1.001-1.035) Urine Protein (Negative) Urine Glucose (UA) (Negative) Urine Ketones (Negative) Urine Blood (Negative) Urine Nitrite (Negative) Urine Bilirubin (Negative) Urine Urobilinogen (<2.0) mg/dL Ur Leukocyte Esterase (Negative) Urine RBC (0-5) /hpf Urine WBC (0-5) /hpf Ur Squamous Epith Cells (0-4) /hpf Urine Bacteria (None) /hpf Urine Mucus (None) /hpf Urine HCG, Qual (Not Detectd) 02/22/24 02/22/24 Range/Units 19:46 19:46 WBC (3.8-10.6) k/uL RBC (3.80-5.40) m/uL Hgb (11.4-16.0) gm/dL Hct (34.0-46.0) % MCV (80.0-100.0) fL MCH (25.0-35.0) pg MCHC (31.0-37.0) g/dL RDW (11.5-15.5) % Plt Count (150-450) k/uL MPV Neutrophils % % Lymphocytes % % Monocytes % % Eosinophils % % Basophils % % Neutrophils # (1.3-7.7) k/uL Lymphocytes # (1.0-4.8) k/uL Monocytes # (0-1.0) k/uL Eosinophils # (0-0.7) k/uL Basophils # (0-0.2) k/uL Sodium (137-145) mmol/L Potassium (3.5-5.1) mmol/L Chloride (98-107) mmol/L Carbon Dioxide (22-30) mmol/L Anion Gap mmol/L BUN (7-17) mg/dL Creatinine (0.52-1.04) mg/dL Est GFR (CKD-EPI)AfAm (>60 ml/min/1.73 sqM) Est GFR (CKD-EPI)NonAf (>60 ml/min/1.73 sqM) Glucose (74-99) mg/dL Plasma Lactic Acid Guille (0.7-2.0) mmol/L Calcium (8.4-10.2) mg/dL Total Bilirubin (0.2-1.3) mg/dL AST (14-36) U/L ALT (4-34) U/L Alkaline Phosphatase (38-126) U/L Total Protein (6.3-8.2) g/dL Albumin (3.5-5.0) g/dL Amylase (30-110) U/L Lipase (23-300) U/L Urine Color Yellow Urine Appearance Cloudy H (Clear) Urine pH 5.5 (5.0-8.0) Ur Specific [place] 1.031 (1.001-1.035) Urine Protein Trace H (Negative) Urine Glucose (UA) Negative (Negative) Urine Ketones Trace H (Negative) Urine Blood Moderate H (Negative) Urine Nitrite Negative (Negative) Urine Bilirubin Negative (Negative) Urine Urobilinogen <2.0 (<2.0) mg/dL Ur Leukocyte Esterase Negative (Negative) Urine RBC 4 (0-5) /hpf Urine WBC 8 H (0-5) /hpf Ur Squamous Epith Cells 9 H (0-4) /hpf Urine Bacteria Rare H (None) /hpf Urine Mucus Many H (None) /hpf Urine HCG, Qual Not Detected (Not Detectd) Disposition <Edward Washburn - Last Filed: 02/22/24 17:43> Is patient prescribed a controlled substance at d/c from ED?: No Time of Disposition: 20:16 <Haresh Phipps - Last Filed: 02/22/24 20:17> Clinical Impression: Abdominal pain, Gastritis, GERD (gastroesophageal reflux disease) Disposition: HOME SELF-CARE Condition: Stable Instructions (If sedation given, give patient instructions): Diet for Stomach Ulcers and Gastritis (ED), GERD (Gastroesophageal Reflux Disease) (ED) Additional Instructions: Please return to the Emergency Department if symptoms worsen or any other concerns. Prescriptions: Metoclopramide [Reglan] 10 mg PO TID PRN #20 tab PRN Reason: Nausea Referrals: Dennis Villeda [STAFF PHYSICIAN] - 1-2 days
[2024-02-22] MEDS: ONDANSETRON 4 MG/2 ML VIAL IVP STA (18:04)
[2024-02-22 18:13] LABS: Basophils % (A) 0 %; Eosinophils # (A) 0.2 k/uL (0-0.7); Eosinophils % (A) 2 %; HCT 45.8 % (34.0-46.0); HGB 15.9 gm/dL (11.4-16.0); Lymphocytes # (A) 2.6 k/uL (1.0-4.8); Lymphocytes % (A) 26 %; MCHC 34.8 g/dL (31.0-37.0); Mean Platelet Volume 6.6; Monocytes # (A) 0.5 k/uL (0-1.0); Monocytes % (A) 5 %; Neutrophils # (A) 6.4 k/uL (1.3-7.7); Neutrophils % (A) 65 %; Platelet Count 344 k/uL (150-450); RBC 4.82 m/uL (3.80-5.40); RDW 12.1 % (11.5-15.5); WBC 9.9 k/uL (3.8-10.6)
[2024-02-22 18:28] LABS: ALT 10 U/L (4-34); AST 15 U/L (14-36); African American GFR (CKD) >90 (>60 ml/min/1.73 sqM); Albumin 4.4 g/dL (3.5-5.0); Alkaline Phosphatase 50 U/L (38-126); Amylase 34 U/L (30-110); Anion Gap 9 mmol/L; Blood Urea Nitrogen 21 mg/dL (7-17); Calcium 9.7 mg/dL (8.4-10.2); Carbon Dioxide 25 mmol/L (22-30); Chloride 102 mmol/L (98-107); Glucose 92 mg/dL (74-99); Lipase 26 U/L (23-300); Non-African American GFR(CKD) >90 (>60 ml/min/1.73 sqM); Potassium 4.1 mmol/L (3.5-5.1); Sodium 136 mmol/L (137-145); Total Bilirubin 0.4 mg/dL (0.2-1.3)
[2024-02-22] MEDS: SODIUM CHLORIDE 0.9% 1,000 ML IV STA (18:30)
[2024-02-22 20:07] LABS: Appearance,Urine Cloudy (Clear); Bacteria,Urine Rare /hpf; Bilirubin,Urine Negative (Negative); Blood,Urine Moderate (Negative); Color,Urine Yellow; Glucose,Urine (UA) Negative (Negative); Ketones,Urine Trace (Negative); Leukocyte Esterase,Urine Negative (Negative); Mucus,Urine Many /hpf; Nitrite,Urine Negative (Negative); PH, Urine 5.5 (5.0-8.0); Protein,Urine Trace (Negative); RBC,Urine 4 /hpf (0-5); Specific Gravity,Urine 1.031 (1.001-1.035); Squamous Epithelial Cell,Urine 9 /hpf (0-4); Urobilinogen,Urine <2.0 mg/dL (<2.0); WBC,Urine 8 /hpf (0-5)
[2024-02-22 20:25] VITALS: BP 108/73; PULSE 82; RESP 18; TEMP 98
== END 2024-02-22 20:25 | disposition home or self-care (01) ==
LOC: EC 17:16 → SUPCPDRO 17:16 → EC 20:25
DX: K29.70 Gastritis, unspecified, without bleeding (principal); K21.9 Gastro-esophageal reflux disease without esophagitis; F17.200 Nicotine dependence, unspecified, uncomplicated
CPT/HCPCS: 36415; 80053; 82150; 83605; 83690; 85025; 81001; 81025; 99283; 96374; 96361 ×2; J2405